=== PATIENT | male | born 1995 | race Caucasian/White ===

== ENCOUNTER 2017-05-20 04:15 | Emergency (ER) | payer SELFPAY ==
[~2017-05-20] VITALS: Ht 182.9 cm; Wt 91.0 kg
[2017-05-20 04:26] VITALS: BP 175/100
== END 2017-05-20 05:32 | disposition left against medical advice (07) ==
LOC: ER 04:15
DX: R10.9 Unspecified abdominal pain (principal); R11.2 Nausea with vomiting, unspecified; Z53.21 Procedure and treatment not carried out due to patient leaving prior to being seen by health care provider